=== PATIENT | male | born 1955 | race Caucasian/White ===

== ENCOUNTER 2018-08-20 12:46 | Inpatient (IN) | payer BC ==
[2018-08-20] MEDS ORDERED: Aspirin 81 mg CHEW TAB* 81 MG TAB.CHEW PO ONE (12:48)
[2018-08-20] MEDS ORDERED: Nitroglycerin TAB 0.4 MG* 0.4 MG TAB SL ONE (12:50)
--- NOTE | 2018-08-20 12:59 | ED ---
HPI Chest Pain - HPI Summary HPI Summary: The pt is a 63 y/o male presenting to [facility] c/o CP and LUE pain since 1730 hrs yesterday. 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 The constant stabbing pain is rated 6/10 in severity at its worst and is different from his previous NV because he did not have CP with his previous NV. He had his first NV at the age 45-46 years and had a stent placed. He notes nausea, CP, L rib pain, a fall 1 month ago (landing on the L side) but denies SAUL, dizziness, and fever. He took 1 baby ASA to mild relief. The pt reports a PMHx of HLD (stopped medications months ago) but denies a hx of HTN and DM. FHx of epileptic seizures (mother). PShx of the kidneys and shoulders. Vital signs while in room: HR 78 bpm, BP 172/98. Pt states he changed his last name when he got , and his name used to be Shaggy Sinclair Jr. Home medications: Lipitor and Plavix which he has not taken because he did not want to take medications - History of Current Complaint Time Seen by Provider: 08/20/18 12:48 Hx Obtained From: Patient Onset/Duration: Started Days Ago - 1 day, Still Present Timing: Constant, Lasting Days Initial Severity: Moderate - 6/10 Current Severity: Mild - CP=2/10, LUE pain= 3/10 Pain Intensity: 2 Pain Scale Used: 0-10 Numeric Chest Pain Location: Discrete at: - L side Chest Pain Radiates: Yes Chest Pain Radiates To:: Arm - LUE Character: Sharp/Stabbing Aggravating Factor(s): Nothing Alleviating Factor(s): OTC Meds - 1 baby ASA Associated Signs and Symptoms: Positive: Negative - SAUL, dizziness, Chest Pain, Nausea, Other: - Fall 1 month ago. Negative: Headaches, Fever - Risk Factors AMI/ACS Risk Factors: Myocardial Infarction, Smoking, Dyslipidemia - Allergy/Home Medications Allergies/Adverse Reactions: Allergies Allergy/AdvReac Type Severity Reaction Status Date / Time No Known Allergies Allergy Verified 08/20/18 12:57 Home Medications: Home Medications NK [No Home Medications Reported] 08/20/18 [History Confirmed 08/20/18] PMH/Surg Hx/FS Hx/Imm Hx Previously Healthy: No Endocrine/Hematology History: Denies: Hx Diabetes Cardiovascular History: Reports: Hx Coronary Artery Disease, Hx Hypercholesterolemia, Hx Myocardial Infarction Denies: Hx Hypertension Respiratory History: Denies: Hx Asthma History: Reports: Other Problems/Disorders - "kidney surgery" Sensory History: Denies: Hx Deafness - Cancer History Cancer Type, Location and Year: None reported - Surgical History Surgery Procedure, Year, and Place: Kidney and shoulder surgery, cardiac stent Infectious Disease History: No - Family History Known Family History: Positive: Seizure Disorder - Mother - Social History Occupation: Employed Full-time Lives: With Family Alcohol Use: Occasionally Hx Substance Use: No Smoking Status (MU): Heavy Every Day Tobacco Smoker Review of Systems Constitutional: Negative - Dizziness, Other - Positive: fall -1 month ago Negative: Fever Positive: Chest Pain Respiratory: Negative Positive: Nausea Musculoskeletal: Other - Positive: L rib pain Skin: Negative Negative: Headache Psychological: Normal All Other Systems Reviewed And Are Negative: Yes Physical Exam - Summary Physical Exam Summary: Appearance: Ill-appearing, moderate pain distress, well-nourished Skin: Warm, color reflects adequate perfusion, dry Head: Normal Head/Face inspection, atraumatic Eyes: Conjunctiva clear ENT: Normal inspection Neck: Supple, no nodes, no JVD Respiratory: scattered wheezes, no respiratory distress, reproducible CP on his left anterior 10th rib Cardio: RRR, No murmur, pulses normal, brisk capillary refill Abdomen: Soft, nontender, no masses, nondistended Bowel sounds: Present Musculoskeletal: Strength Intact/ROM intact, no calf tenderness, no edema. Psychological: Normal Neuro: Alert, muscle tone normal, no focal deficit Triage Information Reviewed: Yes Vital Signs On Initial Exam: Initial Vital Signs Pulse 79 08/20/18 12:49 Resp 23 08/20/18 12:49 Pulse Ox 100 08/20/18 12:49 Vital Signs Reviewed: Yes Diagnostics - Laboratory Result Diagrams: 08/20/18 12:59 08/20/18 12:59 Lab Statement: Any lab studies that have been ordered have been reviewed, and results considered in the medical decision making process. - Radiology CXR Radiology Interpretation Completed By: Radiologist - IMPRESSION: NO ACTIVE CARDIOPULMONARY DISEASE.The ED physician reviewed this radiology report. - CT Chest/thorax CTA CT Interpretation Completed By: Radiologist - IMPRESSION: 1. NO PULMONARY ARTERIAL FILLING DEFECT TO SUGGEST PULMONARY EMBOLISM. 2. 4.2 CM RIGHT ADRENAL NODULE. IN THE ABSENCE OF A HISTORY OF MALIGNANCY, CONSIDER SURGICAL CONSULTATION FOR THE PRESENCE OF AN INCIDENTAL ADRENAL MASS GREATER THAN 4 CM IN SIZE. 3. 0.3 CM PLEURAL-BASED NODULE OF THE RIGHT MIDDLE LOBE. THE RECOMMENDATIONS FOR FOLLOWUP AND MANAGEMENT OF AN INCIDENTALLY DETECTED PULMONARY NODULE LESS THAN 6 MM IN SIZE, IN A PATIENT WITHOUT A HISTORY OF MALIGNANCY, INCLUDE NO FOLLOWUP FOR A LOW-RISK PATIENT OR OPTIONAL FOLLOWUP CT IN 12 MONTHS FOR A HIGH RISK PATIENT. 4. CORONARY ARTERY DISEASE. The ED physician reviewed this radiology report. - EKG 12:42 Cardiac Rate: NL - 74 bpm EKG Rhythm: Sinus Rhythm Ectopy: None EKG Comparison: Other Summary of EKG Findings: Normal IVCT, Normal QTC, Normal axis, ST depression in leads V4-V6. No prior EKG to compare with. 14:13 Cardiac Rate: NL - 75 bpm EKG Rhythm: Sinus Rhythm Ectopy: None Summary of EKG Findings: Normal IVCT, Normal QTC, Normal axis, ST segments have normalized compared to previous EKG performed today after NTG SL x1 and pain relieved. Re-Evaluation - Re-Evaluation First Eval Re-Evaluation Time: 13:49 Change: Improved - The patient is pain free. His , daughter and granddaughter are with him at bedside. He agrees for further testing with a CTA. Second Eval Re-Evaluation Time: 15:45 Change: Improved - Pt remains pain free. I discussed plan to admit with the pt and his family. Chest Pain Course/Dx - Course Course Of Treatment: A 63 year-old M with hx NV and stent at age 48 presents to the ED with a CC of CP and LUE pain since 1730 hrs yesterday after lifting heavy scaffolding at work. Pt is a heavy smoker and discontinued lipitor and plaviix on his own because he did not want to take medication. Pt does not have a beauty therapist. A physical exam revealed scattered wheezes and reproducible pain in his 10th L rib. A CXR is unremarkable. A chest/thorax CTA reveals no pulmonary arterial filling defect to suggest PE, a 4.2 cm adrenal nodule, a 0.3 cm pleural-based nodule in the R middle lobe and coronary artery disease. Initial EKG showed SR with 1-[address] depression in leads V4-V6. A second EKG after one NTG SL which relieved CP shows normalized ST segements. Pt's initial troponin was 0.01, 3 hr troponin was 0.65. In the ED course, pt was given ASA 243 mg PO (since pt had taken 1 baby ASA prior to admission) and NTG 0.4 mg SL which improved the symptoms. I discussed the care of the pt with Dr. Parker hospitalist who agreed to admit the pt. Patient will be admitted with a final Dx of CP, non STEMI. Pt is agreeable with this plan. Allergies noted. - Chest Pain Differential Diagnosis/HQI/PQRI: Acute NV, ACS, Angina, Pulmonary Embolism - Diagnoses Provider Diagnoses: Chest pain, Non-STEMI (non-ST elevated myocardial infarction) - Provider Notifications Discussed Care Of Patient With: Becki Parker - Hospitalist Time Discussed With Above Provider: 15:35 Instructed by Provider To: Admit As Inpatient - Critical Care Time Critical Care Time: 30-74 min - 30 mins Discharge - Sign-Out/Discharge Documenting (check all that apply): Patient Departure - Admit - Discharge Plan Condition: Stable Disposition: ADMITTED TO [facility] - Billing Disposition and Condition Condition: STABLE Disposition: Admitted to [facility] - Attestation Statements Document Initiated by Scribe: Yes Documenting Scribe: Ariella Pablo Provider For Whom Elviraibe is Documenting (Include Credential): Dr. Marian Hogan MD Scribe Attestation: Ariella Mcmanus, scribed for Dr. Marian Hogan MD on 08/21/18 at 0158. Scribe Documentation Reviewed: Yes Provider Attestation: The documentation as recorded by the Ariella mariee accurately reflects the service I personally performed and the decisions made by me, Dr. Marian Hogan MD Status of Scribe Document: Viewed
[2018-08-20 13:06] LABS: ABS Basophils 0.1 10^3/ul (0-0.2); ABS Eosinophils 0.2 10^3/ul (0-0.6); ABS Lymphocytes 1.2 10^3/ul (1.0-4.8); ABS Monocytes 0.5 10^3/ul (0-0.8); ABS Neutrophils 7.7 10^3/ul (1.5-7.7); ABS Nucleated RBC 0 10^3/ul; Eosinophil % 1.8 %; Hematocrit 45 % (42-52); Hemoglobin 15.3 g/dl (14.0-18.0); Lymphocyte % 12.5 %; Mean Corpuscular HGB Conc 34 g/dl (31-36); Mean Corpuscular Hemoglobin 32 pg (27-31); Mean Corpuscular Volume 94 fL (80-94); Mean Platelet Volume 7.9 fL (7.4-10.4); Nucleated Red Blood Cells % 0; Platelet Count 202 10^3/ul (150-450); Red Blood Count 4.74 10^6/ul (4.00-5.40); Red Cell Distribution Width 13 % (10.5-15); White Blood Count 9.7 10^3/ul (3.5-10.8)
[2018-08-20 13:18] LABS: INR 0.95 (0.77-1.02)
[2018-08-20 13:29] LABS: EGFR Non-African American 70.8 (>60)
[2018-08-20] MEDS ORDERED: Iohexol 350* (CONTRAST) 500 ML MDV IV ONE (13:48)
[2018-08-20] MEDS ORDERED: Iodixanol* (CONTRAST) 320 MG/ML 100 ML SDV IV ONE (14:06)
[2018-08-20] MEDS ORDERED: Nicotine PATCH 7 MG/24 HR* PATCH TRANSDERM ONE (15:49)
[2018-08-20] MEDS ORDERED: Morphine VIAL* 4 MG/ML VIAL (1 ml vial) IV PRN (16:44)
[2018-08-20] MEDS ORDERED: Acetaminophen TAB* 325 MG PO PRN (16:44)
[2018-08-20] MEDS ORDERED: Metoprolol Tartrate TAB* 25 MG PO ONE (16:57)
[2018-08-20] MEDS ORDERED: NS 0.9% 1000 ML* 1,000 ML IV SCH (17:00)
[2018-08-20] MEDS ORDERED: Heparin DRIP 25,000 UNITS(*) 25,000 UNITS/500 ML BAG IV SCH (17:00)
[2018-08-20 18:28] LABS: Urine Appearance Clear; Urine Blood Negative (Negative); Urine Color Yellow; Urine Ketones Negative (Negative); Urine Protein Negative (Negative); Urine Specific Gravity > 1.060 (1.010-1.030); Urine Urobilinogen Negative (Negative)
[2018-08-20] MEDS: Heparin VIAL(*) 5000 UNITS/ML VIAL (FIVE THOUSAND) IV PRN (18:38)
[2018-08-20] MEDS: Metoprolol Tartrate TAB* 25 MG PO SCH (20:55)
[2018-08-20] MEDS ORDERED: Nicotine Patch Removal NOTE PATCH OFF ONE (21:00)
[2018-08-20] MEDS ORDERED: Atorvastatin* 80 MG TAB PO ONE (21:00)
[2018-08-21] MEDS: Heparin VIAL(*) 5000 UNITS/ML VIAL (FIVE THOUSAND) IV PRN (00:58)
--- NOTE | 2018-08-21 01:27 | HP ---
ADDENDUM NOW INCLUDED ON THIS REPORT CC: Dr. Townsend; Dr. Lee * HISTORY AND PHYSICAL: DATE OF ADMISSION: 08/20/18. PRIMARY CARE PROVIDER: Dr. Lee. CHIEF COMPLAINT: Chest pain. HISTORY OF PRESENT ILLNESS: Shaggy Rosales used to be Shaggy Bell Jr., who in 2001 presented to our facility with chest pain, was diagnosed with AZ, and was transferred to [facility] where he had cardiac catheterization and 2 stents placed. Since then, he is supposed to be on aspirin and Plavix as well as Lipitor, but he had not been taking it for "a while." He smokes 2 packs per day of cigarettes. 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 The chest pain lasted approximately 2 hours and resolved with treatment with nitroglycerin in the emergency department. When the patient was walking off a CAT scan table, he developed chest pain again. After that episode, his repeat EKG approximately 20 minutes after the repeated episode of chest pain, showed mild ST elevation in his leads V1 to V3. At that point, the patient was already chest pain free. At that point, I was also evaluating the patient for admission. He is going to be admitted to the intensive care unit with a diagnosis of AZ. PAST MEDICAL HISTORY: 1. History of coronary artery disease, status post 2 stents in 2001 at [facility]. 2. History of dyslipidemia. 3. Tobacco abuse. MEDICATIONS: None. ALLERGIES: No known drug allergies. FAMILY HISTORY: Positive for father with diabetes, hypertension, and bypass in his 70s. Mother with history of seizure. Brother at the age of 41 of heart attack. SOCIAL HISTORY: The patient smokes 2 packs per day. He has been doing so most of his adult life. He drinks occasional beer. He denies any drug use. He lives with his Mrs. Sienna Rosales. He changed this last time to his 's name when they . His also would be the surrogate. REVIEW OF SYSTEMS: The patient stated that his exercise tolerance up to the episode of chest pain today had been excellent. He had been "dragging deer from the forest" since he is hunting for deer season without any problems. All the remaining 12 systems were reviewed with the patient and were otherwise negative. PHYSICAL EXAMINATION GENERAL: The patient is a pleasant 63-year-old male, who is in no acute distress. Alert, awake, and oriented x3. VITAL SIGNS: Blood pressure of 133/78, heart rate of 78 and regular, respiratory rate 19, oxygen saturation 97% on room air, temperature of 98.1. HEENT: Head: Atraumatic, normocephalic. Eyes: Pupils are equal, reactive to light and accommodation. Oropharynx is clear. Mucosa moist. NECK: Supple. No JVD. No bruits bilaterally. RESPIRATORY: Clear to auscultation bilaterally. CARDIOVASCULAR: Regular rate and rhythm. No murmur. ABDOMEN: Soft, nontender. Bowel sounds are present in all 4 quadrants. EXTREMITIES: There is no edema. Pulses are +2 bilaterally. There is no clubbing and no cyanosis. NEUROLOGIC: On neuro evaluation, speech is clear. Cranial nerves II through XII are grossly intact. Motor strength is 5/5 bilaterally. SKIN: On evaluation of the skin, no ecchymotic areas or rashes noted. DIAGNOSTIC STUDIES/LAB DATA: The patient's initial troponin was 0.01, second troponin was 0.65, the troponins were obtained 6 hours apart. Sodium was 138, potassium 2.5, chloride 103, carbon dioxide 25, BUN 15, creatinine 1.06. Liver function tests unremarkable. TSH of 4.4. CBC: White blood cell count of 9.7, hemoglobin 15.3, hematocrit 45, and platelets of 202. The patient's portable chest x-ray, impression, "No active cardiopulmonary disease." CT angiogram of the chest, impression, "No pulmonary arterial filling defects to suggest pulmonary embolism. A 4.2-cm right adrenal nodule in the absence of history of malignancy consider surgical consult for the presence of an incidental adrenal mass greater than 4 cm in size, 0.3 cm subpleural nodule of the right middle lobe." The patient's initial EKG showed normal sinus rhythm with a heart rate of 74 beats per minute with mild ST depression in the lateral leads. The recent EKG showed minimal ST elevation in leads V1 to V3, below 1 mm with negative T waves in lead V2 and V3, which is new comparing from the EKG obtained [address] changes in lateral leads appeared to have resolved by that point. ASSESSMENT AND PLAN: 1. Unstable angina/non-ST elevation myocardial infarction. The patient has minimal ST changes currently, but he is chest pain free. I discussed the case with Dr. Townsend, the upholsterer assembly line marketing content specialist. The patient is going to be given beta armand, heparin drip, and nitroglycerin paste and he has been placed in the intensive care unit for monitoring. He is going to be placed n.p.o. for likely cardiac catheterization in the morning. I will obtain transthoracic echocardiogram. He is also going to be placed on Lipitor on a daily basis. I will obtain fasting lipid profile to evaluate it further in the morning. 2. For DVT prophylaxis, the patient is going to be placed on a heparin drip as mentioned above. 3. The patient's code status is full and his surrogate is his . TIME SPENT: Approximately, 72 minutes was spent on evaluation and treatment of this patient in the emergency department, more than half that time was spent face- to-face with the patient. ADDENDUM: ASSESSMENT AND PLAN: 1. 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 At this point, surgical evaluation is recommended. Due to that that it was incidentally found and the patient has no symptoms of adrenal adenoma, the patient is going to be referred to Dr. Del Toro, the surgical beef cattle specialist at discharge. 2. In regards to the patient's 3-mm lung nodule, followup recommended with CAT scan in 3 to 6 months to document stability. [id number]/[facility] #: [id number]/[facility] #: [id number] CHANELLE
--- NOTE | 2018-08-21 02:57 | HP ---
CC: Dr. Lee HISTORY AND PHYSICAL: ADDENDUM: ASSESSMENT AND PLAN: 1. 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 At this point, surgical evaluation is recommended. Due to that that it was incidentally found and the patient has no symptoms of adrenal adenoma, the patient is going to be referred to Dr. Del Toro, the surgical speech language specialist at discharge. 2. In regards to the patient's 3-mm lung nodule, followup recommended with CAT scan in 3 to 6 months to document stability. [id number]/[facility] #: [id number] [facility] HOSPITALJessie
--- NOTE | 2018-08-21 03:32 | CONS ---
CC: Hospital Service, Dr. Parker; Dr. Townsend; Dr. Lee * CARDIOLOGY CONSULT: DATE OF CONSULT: 08/20/18 PRIMARY CARE PHYSICIAN: Dr. Lee. HISTORY OF PRESENT ILLNESS: The patient is a 63-year-old male patient with known history of coronary artery disease, history of myocardial infarction and stents back in 2001 that was done at [facility] in [place]. Full detailed information is not immediately available to me. The patient is noncompliant with his medications. He stopped his cardiac medications more than 6 months ago. He continues to smoke. He had history of hyperlipidemia, hypertension, and current tobacco consumption. 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 He had no orthopnea, no dizziness, no syncope, no fever, no chills, no skin rash, no tremors, no hematochezia, no palpitations appreciated. He called his associate, who drove him to the emergency room and in the emergency room, he had initial troponin that was 0.01 that was about 12:59 this afternoon. His BNP was 21. The patient after sublingual nitroglycerin became chest pain-free. He had a troponin second one was at 4:16 this afternoon and it came up to 0.65. His EKGs, no definite ST elevation. He had a borderline J- point elevation in V2 ,V2 and V3 and borderline in lead I and lead II and III. After he came back from the CT scan, he had to go to the bathroom and he had brief episode of chest pain. He had a followup EKG then as well at 1717 showed he has T-wave inversions in V1, V2, V3 and V4 and because of that cardiology consult was further requested. He is chest pain-free. He has been chest pain- free since then. He gives no orthopnea, no PND, no swelling in the lower extremities, no history of congestive heart failure, no diabetes according to the patient. He is comfortable at the present time. He will be admitted the intensive care unit. PAST MEDICAL HISTORY: Includes history of myocardial infarction, history of coronary artery disease, history of stents put in 2001 at [facility] in [place]. PAST SURGICAL HISTORY: History in the kidney on the left side. He is not aware of the details. He was a child. MEDICATIONS: As an outpatient, he was supposed to be on: 1. Lisinopril. 2. Lipitor. 3. Aspirin. 4. Plavix. He is not on any of them. ALLERGIES: He has no known drug allergies. FAMILY HISTORY: There is no family history of premature coronary artery disease. SOCIAL HISTORY: He lives with his . He has 3 kids, doing well. REVIEW OF SYSTEMS: His review of all other systems essentially is negative. PHYSICAL EXAM: He is awake, alert, and oriented. He is not in any acute distress. His vitals revealed blood pressure 117/83; his pulse is 68, he is in sinus rhythm; temperature 98; and respiratory rate is 22. Head and Neck Exam: Normocephalic, atraumatic head. Ears, nose, and throat essentially benign. Neck is supple. JVP is not elevated. No carotid bruits. No masses in the neck are appreciated. Chest: Clear to auscultation. No rales. No wheeze. No added sounds appreciated. Heart: Normal S1, S2. No added sounds. No gallops, no rubs. Abdomen: Benign, soft. Positive bowel sounds. Extremities: No edema, no cyanosis, and no clubbing. Skin exam is normal. Psych: Normal affect and mood. DICTATING MACHINE TRANSCRIBER: No focal deficit is appreciated. DIAGNOSTIC STUDIES/LAB DATA: His EKGs as described. His labs showed the following: Sodium 138, potassium 3.5, chloride 103, carbon dioxide 25, BUN 15, creatinine 1.06. LFTs are normal. BNP 21. TSH 4.49. White blood cells 9.7, hemoglobin 15.3, hematocrit 45, and platelets 202. His CTA of the chest showed no PE appreciated. IMPRESSION: The patient is a 63-year-old male patient with: 1. Ruled in for myocardial infarction. No definite ST elevation by his EKG, but definitely he has dynamic EKG changes and known history of coronary artery disease. 2. Known history of coronary artery disease, history of myocardial infarction and stents in 2001 at [facility] in [place]. Full detailed information not immediately available. 3. Systemic arterial hypertension. 4. Hyperlipidemia. 5. Abnormal EKG as described. 6. Hypokalemia. 7. The patient is noncompliant. PLAN: The patient is currently chest pain-free. I discussed him with Dr. Parker from the hospitalist service. He will be admitted to the intensive care unit. He will be started on aspirin, heparin as per protocol, statin, and also lisinopril and Lopressor beta-armand. He is to be kept n.p.o. after midnight for cardiac catheterization in the morning to evaluate his coronary anatomy as well as the status of his stents. If he becomes hemodynamically unstable or becomes with more recurrent symptoms of chest pain or significant EKG abnormalities, then he might be taken to the cardiac garden labourer sooner rather than later. I have discussed him via phone with Dr. Cooper, the business quality assurance analyst on-call and discussed the plan as well. I answered all the patient 's concerns and questions up to his satisfaction and his family. TIME SPENT: More than half of at least 65 plus minutes was [id number] in the education and counseling mode. [id number]/[facility] #: [id number] CHANELLE
[2018-08-21 06:18] LABS: ABS Basophils 0 10^3/ul (0-0.2); ABS Eosinophils 0.2 10^3/ul (0-0.6); ABS Lymphocytes 1.5 10^3/ul (1.0-4.8); ABS Monocytes 0.6 10^3/ul (0-0.8); ABS Neutrophils 6.5 10^3/ul (1.5-7.7); ABS Nucleated RBC 0 10^3/ul; Eosinophil % 2.5 %; Hematocrit 43 % (42-52); Hemoglobin 14.7 g/dl (14.0-18.0); Mean Corpuscular HGB Conc 35 g/dl (31-36); Mean Corpuscular Hemoglobin 32 pg (27-31); Mean Corpuscular Volume 94 fL (80-94); Nucleated Red Blood Cells % 0; Platelet Count 189 10^3/ul (150-450); Red Blood Count 4.52 10^6/ul (4.00-5.40); Red Cell Distribution Width 13 % (10.5-15); White Blood Count 8.9 10^3/ul (3.5-10.8)
[2018-08-21 06:36] LABS: EGFR Non-African American 79.4 (>60)
[2018-08-21] MEDS ORDERED: NS 0.9% 1000 ML* 1,000 ML IV SCH ×2 (07:00→11:30)
[2018-08-21] MEDS: Metoprolol Tartrate TAB* 25 MG PO SCH (08:44)
[2018-08-21] MEDS ORDERED: Potassium Chlor TAB* 20 MEQ TAB.ER PO ONE (08:46)
[2018-08-21] MEDS ORDERED: Aspirin EC TAB* 325 MG PO SCH (09:00)
[2018-08-21] MEDS ORDERED: fentaNYL* 50 MCG/ML 2 ML VIAL (100 MCG VIAL) ONE (09:51)
[2018-08-21] MEDS ORDERED: VERAPAMIL 2.5 MG/ML 2 ML VIAL ** 5 mg/2 ml ONE (09:51)
[2018-08-21] MEDS ORDERED: nitroGLYCERIN DRIP* 25,000 MCG/250 ML BTL ONE (09:51)
[2018-08-21] MEDS ORDERED: Midazolam* 1 MG/ML 10 ML VIAL (10 MG) ONE (09:51)
[2018-08-21] MEDS ORDERED: Heparin 2 UNITS/ML IVPREMIX* 2,000 ML IV ONE (09:51)
[2018-08-21] MEDS ORDERED: Heparin(*) 1000 UNIT/ML 10 ML VIAL CATH LAB IV ONE (09:51)
[2018-08-21] MEDS ORDERED: Iohexol 300 (CONTRAST) 10 ML SDV ONE (09:52)
[2018-08-21] MEDS ORDERED: Iohexol 350 (CONTRAST) 200 ML MDV IV ONE (09:52)
[2018-08-21] MEDS ORDERED: Lidocaine 1% INJ* 10 MG/ML 30 ML SDV ONE (09:52)
--- NOTE | 2018-08-21 10:26 | PN ---
Subjective Date of Service: 08/21/18 Interval History: Pt is preparing for cath today. Denies CP Objective Active Medications: Acetaminophen (Tylenol Tab*) 650 mg PO Q4H PRN PRN Reason: FEVER/PAIN Aspirin (Ecotrin Ec Tab*) 325 mg PO DAILY [facility] Last Admin: 08/21/18 08:44 Dose: 325 mg Sodium Chloride (Ns 0.9% 1000 Ml*) 1,000 mls @ 100 mls/hr IV .per rate [facility] Metoprolol Tartrate (Lopressor Tab*) 25 mg PO Q12HR [facility] Last Admin: 08/21/18 08:44 Dose: 25 mg Morphine Sulfate (Morphine Vial*) 2 mg IV Q4H PRN PRN Reason: PAIN - MILD Vital Signs - 8 hr 08/21/18 08/21/18 08/21/18 03:00 03:01 04:00 Temperature 98.4 F Pulse Rate 56 55 64 Respiratory 15 15 21 Rate Blood Pressure 110/74 122/94 (mmHg) O2 Sat by Pulse 94 95 98 Oximetry 08/21/18 08/21/18 08/21/18 04:01 05:00 05:01 Temperature Pulse Rate 61 57 56 Respiratory 19 16 14 Rate Blood Pressure 106/70 (mmHg) O2 Sat by Pulse 97 95 95 Oximetry 08/21/18 08/21/18 08/21/18 05:50 06:00 06:01 Temperature Pulse Rate 67 71 Respiratory 15 17 16 Rate Blood Pressure 110/67 (mmHg) O2 Sat by Pulse 95 97 Oximetry 08/21/18 08/21/18 08/21/18 07:00 07:01 08:00 Temperature Pulse Rate 53 56 53 Respiratory 15 14 17 Rate Blood Pressure 113/75 109/71 (mmHg) O2 Sat by Pulse 96 96 95 Oximetry 08/21/18 08/21/18 08/21/18 08:01 08:19 09:00 Temperature 97.6 F Pulse Rate 57 69 Respiratory 17 23 Rate Blood Pressure 134/83 (mmHg) O2 Sat by Pulse 95 96 Oximetry 08/21/18 08/21/18 08/21/18 09:01 10:00 10:01 Temperature Pulse Rate 63 63 65 Respiratory 21 18 23 Rate Blood Pressure 143/91 (mmHg) O2 Sat by Pulse 95 96 97 Oximetry Oxygen Devices in Use Now: None Appearance: 63 yo M in nAD, aAOx3 Eyes: No Scleral Icterus, PERRLA Ears/Nose/Mouth/Throat: NL Teeth, Lips, Gums, Mucous Membranes Moist Neck: NL Appearance and Movements; NL JVP, Trachea Midline Respiratory: Symmetrical Chest Expansion and Respiratory Effort, Clear to Auscultation Cardiovascular: NL Sounds; No Murmurs; No JVD, RRR Abdominal: NL Sounds; No Tenderness; No Distention Lymphatic: No Cervical Adenopathy Extremities: No Edema, No Clubbing, Cyanosis Skin: No Rash or Ulcers, No Nodules or Sclerosis Neurological: Alert and Oriented x 3, NL Muscle Strength and Tone Result Diagrams: 08/21/18 06:00 08/21/18 06:00 Microbiology and Other Data: Microbiology 08/20/18 18:35 Nasal Screen MRSA (PCR) - Final Nasal Mrsa Not Detected Assess/Plan/Problems-Billing Assessment: 63 yo M with h/o CAD(2 stents in 2001 at [facility]) presents with NSTEMI - Patient Problems (1) NSTEMI (non-ST elevated myocardial infarction) Comment: heparin gtt off for cath. trop still has not peaked, last one >5 EKG shows further inversion of T in V1-V3 CP free cont ASA, BB, statin (2) Dyslipidemia Comment: LDL 163 Lipitor started (3) Tobacco abuse counseling Comment: counseled 2 min today at 4 min at admission (4) DVT prophylaxis Comment: was on heprain gtt, held for cath
[2018-08-21] MEDS ORDERED: Metoprolol Tartrate TAB* 25 MG PO SCH (12:00)
[2018-08-21 13:03] VITALS: BP 96/60
--- NOTE | 2018-08-21 16:37 | TRS ---
CC: Dr. Cooper; Dr. Townsend; Dr. Bustillo; Dr. Lee * DATE OF ADMISSION: 08/20/2018. DATE OF ANTICIPATED TRANSFER: 08/21/2018. PRIMARY CARE PHYSICIAN: Dr. Lee. DISPOSITION: The patient is being transferred to [facility] in [place], [place] under the care of Dr. Bustillo. REASON FOR TRANSFER: Severe three vessel carotid disease. The patient is going there for consideration of coronary artery bypass grafting. MEDICATIONS AT THE TIME OF TRANSFER: 1. Normal saline 75 ml/hour. 2. Metoprolol Tartrate 25 mg p.o. every 6 hours. 3. Aspirin 325 mg daily. 4. Nitroglycerin 0.4 mg on a prn basis for chest pain. LABORATORY DATA: The most recent laboratory data from 08/21/2018 showed sodium 138, potassium 3.8, chloride 107, carbon dioxide 25, BUN 14, creatinine 0.96. Troponin was obtained at 6:00 a.m. on 08/21/2018 and was 5.1. The patient's fasting liver profile shows triglycerides of 120, cholesterol 227, LDL 163, HDL 40. TSH was noted to be 4.4 on admission. CBC: WBC 8.9, hemoglobin 14.7, hematocrit 43, platelets 189. PROCEDURES PERFORMED: Cardiac catheterization performing in the morning on by Dr. Cooper which as per verbal report from Dr. Cooper showed severe three vessel coronary artery disease HOSPITALIZATION COURSE: Shaggy Rosales is a 63-year-old male with a history of smoking over a pack a day who had coronary artery disease with stenting in 2001 and had not been taking his medications, including Plavix, aspirin, and Lipitor for "a while" who presented complaining of exertional chest pain. His troponin continues to increase throughout his hospital stay. He had developed chest pain when he was still observed in the emergency room and it was recurrent. His EKG showed minimal ST elevation and negative T-waves which was new. On the morning on 08/21/2018, his T-waves progressed to be more negative. Dr. Cooper saw the patient in consultation and performed cardiac catheterization which showed severe three vessel coronary disease. The patient wished to be transferred back to [facility] where he received his stents in 2001 for further management of likely cardiothoracic surgery. PHYSICAL EXAMINATION AT DISCHARGE: Noted in the progress notes. Please note that Dr. Bustillo from [facility] was kind enough to accept the patient in consideration for cardiothoracic surgery at [facility]. Please note, this is a short summary of the patient's hospitalization. Please refer to further medical records for details. Approximately 40 minutes were spent on this patient's discharge. [id number]/[facility] #: [id number] CHANELLE
--- NOTE | 2018-08-22 07:22 | CATH ---
CC: Dr. Lee; Dr. Townsend * CATH REPORT: DATE OF PROCEDURE: 08/21/18 - ROOM #ICU-03 PRIMARY CARE PROVIDER: Dr. Lee in [place]. [place] SPECIALIST: Dr. Townsend. PROCEDURES: 1. Right radial artery access. 2. Bilateral selective coronary cineangiography. 3. Left heart catheterization. 4. Left ventriculography. HISTORY: A 63-year-old male with prior infarct, 08/31/02, at which time catheterization in [place] demonstrated mid RCA occlusion with left to right collaterals, high grade circumflex stenosis, which was stented with a 2.75 x 15 PENTA stent, with a more distal overlapping 2.5 x 13 stent. The ramus was occluded, the presumed culprit, was treated with angioplasty, 2.5 x 15 mm. Per report at that time, he had a 70% diagonal stenosis and 50% LAD stenosis. He was lost to followup, about 6 months ago stopped his medical regimen, which he recognizes was foolish. He presented yesterday with a non-ST elevation infarct with 2 hours of chest pain, subsequent inversion of his precordial T waves, and a troponin elevation to 5.18, although not yet peaked. He has been asymptomatic here on medical therapy, was referred for coronary angiography. PROCEDURE ACCESS: Right radial artery sheath 6F slender. MEDICATIONS: 1. Subcu lidocaine. 2. IV Versed. 3. IV fentanyl. 4. Heparin 3000 units. 5. Verapamil 3 mg. 6. Nitroglycerin 300 mcg IA. DIAGNOSTIC CATHETERS: 5F TIG4, 5F R4, 5F pigtail. HEMODYNAMICS: LV 97/11, no aortic valve gradient. Of note, he had an episode of asymptomatic 8-beat run of monomorphic nonsustained VT prior to angiography. ANGIOGRAPHY: Left main: The left main has gradual distal taper to approximately 30% to 40%. LAD: The LAD is large, calcified, has proximal luminal irregularity, mid portion has a 90% stenosis, distally the LAD has ELDA 2 flow. There is a large proximal diagonal, which has proximal tubular 60% stenosis. There are well developed left to right collaterals, primarily from the circumflex. Circumflex: The circumflex is not dominant, is moderate in size with a very large ramus, which has a 70% stenosis, the AV groove of circumflex supplies no significant branches, but does provide transatrial collaterals to the distal right coronary. RCA: The RCA is occluded a centimeter from the origin, distal RCA fills through well established collaterals with filling of the large PDA and posterolateral, which are in continuity. The RCA is heavily calcified. LV Gram: Estimated LVEF 45%, there is mild anterolateral hypokinesis, and mild distal inferior apical hypokinesis, no mitral regurgitation. CONCLUSION: 1. Three-vessel disease with mildly impaired left ventricular systolic function , non-ST elevation infarct presentation. 2. Normal left-sided hemodynamics. 3. Successful right radial artery access. 4. He will be referred for bypass grafting. [id number]/[facility] #: [id number] CHANELLE
== END 2018-08-21 14:44 | disposition short-term general hospital (02) | DRG 191 ==
LOC: ED 12:46 → ICU 16:44 → MERGE 16:44
PROVIDERS: ADMIT Internal Medicine; ATTEND Internal Medicine
PROC: B211YZZ Fluoroscopy of Multiple Coronary Arteries using Other Contrast (ICD-10-PCS; 2018-08-21)
PROC: B215YZZ Fluoroscopy of Left Heart using Other Contrast (ICD-10-PCS; 2018-08-21)
PROC: 4A023N7 Measurement of Cardiac Sampling and Pressure, Left Heart, Percutaneous Approach (ICD-10-PCS; principal; 2018-08-21 10:00)
DX: I11.9 Hypertensive heart disease without heart failure (principal); I21.4 Non-ST elevation (NSTEMI) myocardial infarction; I25.10 Atherosclerotic heart disease of native coronary artery without angina pectoris; E87.6 Hypokalemia; E78.5 Hyperlipidemia, unspecified; F17.210 Nicotine dependence, cigarettes, uncomplicated; R91.1 Solitary pulmonary nodule; Z95.5 Presence of coronary angioplasty implant and graft; Z91.14 Patient's other noncompliance with medication regimen; Z83.3 Family history of diabetes mellitus; Z82.49 Family history of ischemic heart disease and other diseases of the circulatory system
CPT/HCPCS: 36415; 71045; 71275; 80048; 80053; 80061; 81003; 82550; 82553; 83605; 83735; 83880; 84443; 84484; 85025; 85379; 85610; 85730; 87641; 93005; 93306; 93458; 99156; 99157; 99285; A9270-GY; J1644; J2250; J3010; Q9967